=== PATIENT | male | born 1960 | race Caucasian/White ===

== ENCOUNTER 2022-03-23 14:44 | Outpatient (CLI) | payer OTHER, SELFPAY ==
--- NOTE | 2022-03-23 16:00 | CRLHL7_ITS ---
For Patients: As a result of the Century Cures Act, medical imaging exams and procedure reports are released immediately into your electronic medical record. You may view this report before your referring provider. If you have questions, please contact your health care provider. INDICATION: 2 MONTHS NONIMPROVEMENT FROM BASELINE Respiratory DISTRESS COMPARISON: Chest x-ray 03/15/2022 TECHNIQUE: CT volumetric acquisition was performed of the thorax during intravenous infusion of 95 cc Isovue 370 nonionic intravenous contrast. Please note that all CT scans at this facility use dose modulation, iterative reconstruction, and/or weight-based dosing when appropriate to reduce radiation dose to as low as reasonably achievable. FINDINGS: There is no pulmonary embolism in the main, lobar or segmental pulmonary arteries. Calcified subcarinal lymph node noted along with a calcified right hilar lymph node. Mildly enlarged precarinal lymph node present, likely also related to old granulomatous exposure. No pleural effusion. The upper abdomen is unremarkable. No aortic dissection. Partially calcified nodule in the right upper lobe measuring 7 millimeters. Noncalcified nodule in the right middle lobe measuring 4 millimeters. Calcified nodule right lower lobe measuring 1.5 cm. Dependent atelectasis in the left lower lobe. IMPRESSION: No evidence of pulmonary thromboembolism. Sequela of granulomatous disease with calcified lymph nodes and calcified right-sided pulmonary granulomas. Other noncalcified mediastinal lymph nodes and right-sided nodules are present which are also likely related to the granulomatous disease. Follow-up CT chest in 1 year suggested. Please note that all CT scans at this facility use dose modulation, iterative reconstruction, and/or weight-based dosing when appropriate to reduce radiation dose to as low as reasonably achievable. Dictated by Tom Lewis MD @ 03/24/2022 8:23:56 AM (Electronically Signed)
[2022-03-23] MEDS: PERFLUTREN LIPID MICROSPHERES 2 ML VIAL IV (16:46)
== END 2022-03-23 14:45 | disposition home or self-care (01) ==
PROVIDERS: PCP Family Medicine; Visit Provider Family Medicine
DX: R01.1 Cardiac murmur, unspecified (principal); J45.901 Unspecified asthma with (acute) exacerbation
CPT/HCPCS: 71260; 93306; Q9957; Q9967

== ENCOUNTER 2022-05-29 10:48 | Outpatient (CLI) | payer OTHER, SELFPAY | END 2022-05-29 10:49 | disposition home or self-care (01) | PROVIDERS: PCP Family Medicine; Visit Provider Family Medicine | DX: Z00.00 Encounter for general adult medical examination without abnormal findings (principal); R73.9 Hyperglycemia, unspecified; E66.01 Morbid (severe) obesity due to excess calories; Z13.6 Encounter for screening for cardiovascular disorders; Z11.59 Encounter for screening for other viral diseases | CPT/HCPCS: 80053; 80061; 86803 ==

== ENCOUNTER 2022-08-29 06:07 | Day surgery (SDC) | payer OTHER, SELFPAY ==
[2022-08-29] VITALS (14 sets, daily range): BP systolic 113–143; BP diastolic 57–86; PULSE 58–76; RESP 16–20; TEMP 36.2–36.7; O2SAT 93–97; BMI 48.8
[2022-08-29] MEDS: LACTATED RINGERS 1000 ML 1,000 ML 100 ML IV (06:15)
[2022-08-29] MEDS: SODIUM CHLORIDE 0.9 % (FLUSH) 10 ML SYRINGE IVF (07:33)
[2022-08-29] MEDS: MIDAZOLAM HCL 1 MG/ML inj IVP (07:39)
[2022-08-29] MEDS: fentaNYL 100 MCG/2 ML inj IVP (07:39)
--- NOTE | 2022-08-29 07:51 | P.NB_ITS ---
Nerve Block Nerve Block Time Seen by Provider: 07:42 Date Seen: 08/29/22 Type of block requested by surgeon for post-operative analgesia: supraclavicular Side: left Time out performed: Yes Verification of patient name: Yes Verification of date of : Yes Site marking: site marked Name of person performing procedure: Joni Continuous monitoring Was continuous monitoring of O2 sat, B/P, monitor and storage bin tender, recorded every 15 minutes?: Yes Procedure Checklist: sterile prep, needles and gloves Ultrasound guided. Images saved: Yes Medications given in 5ml increments after negative aspiration: Ropivicaine %: 0.5 mL: 20 Needle gauge: 22 Decadron (mg): 10 Precedex (mcg): 25 Patient tolerated procedure well: Yes Block Charges Block Charge (with Pro Fee): Brachial Plexus Use of Ultrasound Machine for Block: Yes- US Guidance/pain block
--- NOTE | 2022-08-29 07:51 | W.ANESCHARGE ---
Anesthesia Charges Start Date/Time Anesthesia Start Date: 08/29/22 Anesthesia Start Time: 07:49 Stop Date/Time Anesthesia Stop Date: 08/29/22 Anesthesia Stop Time: 10:06
--- NOTE | 2022-08-29 08:05 | SUR.PREOP ---
TIME?OUT:?0739 PT/RN/MDA?VERIFICATION?OF?SURGICAL?SITE,?PROCEDURE,?AND?CONSENT OBTAINED?PRIOR?TO?INVASIVE?PROCEDURE.
[2022-08-29] MEDS: CEFAZOLIN 2 GM in 0.9 % SODIUM CHLORIDE Mini-bag 100 ML IVPB (08:25)
[2022-08-29] MEDS: EPINEPHrine 1 MG in SODIUM CHLORIDE IRRIG SOLUTION 3,000 ML 3001 MG IRRIGATION ×3 (08:29→09:05)
--- NOTE | 2022-08-29 08:41 | SUR.OPER ---
PATIENT QUESTIONS ANSWERED SATISFACTORILY PREOPERATIVELY. PATIENT BROUGHT TO OR #3 PER CART FOLLOWING THE BLOCK. Patient positioned supine on OR #3 bed for the intubation.? Perioperative team wrapped the right arm in a neutral position on the pt. abdomen with the drawsheet. Left arm elevated on an IV pole in a padded strap. Final approval of positioning by surgeon. CONTINUOUS IRRIGATION OF THE LEFT SHOULDER WITH MIXTURE OF 3000 NACL AND 1mg OF EPINEPHRINE DURING PROCEDURE.
[2022-08-29] MEDS: EPINEPHrine 1 MG in SODIUM CHLORIDE IRRIG SOLUTION 3,000 ML 1501 MG IRRIGATION (09:13)
--- NOTE | 2022-08-29 10:08 | W.ANESCHARGE ---
Anesthesia Charges Start Date/Time Anesthesia Start Date: 08/29/22 Anesthesia Start Time: 07:49 Stop Date/Time Anesthesia Stop Date: 08/29/22 Anesthesia Stop Time: 10:06
--- NOTE | 2022-08-29 11:26 | P.ORPRC_ITS ---
Procedure Note Date of procedure: 08/29/22 Procedure: PREOPERATIVE DIAGNOSES: 1. Left shoulder rotator cuff tear. 2. Left shoulder AC degenerative joint disease, primary, moderate-severe 3. Left shoulder labral tearing 4. Left shoulder low-grade partial-thickness long of the biceps tendon tearing. 5. 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 Left shoulder subacromial impingement syndrome. 7. Morbid obesity-BMI 48.9 POSTOPERATIVE DIAGNOSES: 1. Left shoulder rotator cuff tear - supraspinatus small full-thickness tear; upper border subscapularis tear with retraction 2. Left shoulder AC degenerative joint disease, primary, moderate-severe 3. Left shoulder labral tearing 4. Left shoulder low-grade partial-thickness long of the biceps tendon tearing. 5. 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 Left shoulder subacromial impingement syndrome. 7. Morbid obesity-BMI 48.9 NAME OF OPERATION: 1. Left shoulder arthroscopic rotator cuff repair (supraspinatus; subscapularis)-15% added difficulty due to patient's body habitus. While arthroscopic the way able to complete all things, this did require deeper portals and caution with positioning for patient's safety as well as 15% increased operative time relative to expected for this size of rotator cuff te ar. 2. Left shoulder arthroscopic distal clavicle excision 3. Left shoulder arthroscopic extensive glenohumeral debridement 4. Left shoulder arthroscopic bursectomy, subacromial decompression/partial acromioplasty. SURGEON: Spencer Cullen MD ENROLLMENT MANAGER: [Ari CASTRO]. Of note, a skilled family readiness support assistant was critical for this case to aide in patient positioning, suture manipulation, arm positioning, instrument positioning, and closure. ANESTHESIA: General plus preoperative supraclavicular block. EBL: 25 mL IMPLANTS: Arthrex 4.75 mm BioComposite SwiveLock suture anchor (x2); 5.5 mm BioComposite SwiveLock suture anchor (x1) COMPLICATIONS: [None evident] INDICATIONS: The patient is a pleasant, 62-year-old male who has experienced left shoulder pain that has been increasing in recent time. Physical exam and imaging were consistent with a rotator cuff tear. Given their findings, as well as the weakness and pain, and inadequate response to nonoperative management, recommendation was made for surgery. FINDINGS: Exam under anesthesia revealed stable shoulder with excellent range of motion. The diagnostic arthroscopy revealed grade 2-3 chondromalacia humeral head. The Subscapularis tendon was torn with mild-moderate retraction from upper border. The long head of the biceps tendon was torn low-grade partial- thickness manner on the deep surface at the bicipital groove region. The superior rotator cuff tendon was found to be [torn full thickness at the anterior margin measuring approximately 12 mm in greatest dimension with minimal retraction]. The labrum was [degeneratively frayed in the anterior and superior aspects]. No loose bodies were identified within the pouch or subscapularis recess. PROCEDURE: Following a thorough discussion of risks, benefits, and alternatives, consent was obtained and the left shoulder was marked. The patient was brought to the operating room and placed supine on the operating t able. Induction of anesthesia was completed after preoperative supraclavicular block was administered in preop holding. Appropriate time out was performed identifying proper patient, site, and procedure. 2 g IV Ancef was administered within 1 hour of incision preoperatively. The left upper extremity was prepped and draped in the appropriate sterile fashion using ChloraPrep prep. This was after the patient was positioned in the beach chair with their head in neutral alignment and all bony prominences well padded. The shoulder was insufflated with 20mL of normal saline via an 18g spinal needle from a posterior approach. An 11 blade skin incision allowed a blunt trochar to be inserted and diagnostic arthroscopy to be performed with the findings as noted above. An anterior portal was established with an outside in technique. This allowed the probe to be inserted and confirm the diagnostic arthroscopic findings. The shaver was then inserted and allowed debridement of [the anterior and superior labrum as well as the humeral head and the long head of the biceps partial- thickness tearing.] Following this, the upper border subscapularis was [repaired after debriding the lesser tuberosity with the shaver and [place] cautery. Subscapularis was captured in horizontal mattress fashion with a fiber tape suture. The tails were brought to a single anchor in the lesser tuberosity with excellent reapproximation of the subscap tendon and good excursion/tension.] Thereafter, the subacromial space was entered. Here, [a complete bursectomy and partial acromioplasty/subacromial decompression was performed with a combination of radiofrequency ablator, the shaver, and a 5.5 mm bur.] [Additionally, distal clavicle excision was performed with the bur. 8 mm of distal clavicle was resected based on the width of our bur.] Further inspection of the supraspinatus and infraspinatus rotator cuff was performed. [This identified the tear as noted above. The margins of the tear were debrided, and the greater tuberosity was debrided with a combination of the [place] cautery, shaver, and bur on reverse setting.] [After gentle decortication, single FiberTape suture was passed in a horizontal mattress fashion with the scorpion needle. It was brought to a single anchor further laterally with excellent reapproximation and securing of the rotator cuff.] Prior to anchor driver education road instructor removal, the eyelet sutures were tugged on for each anchor and found that the anchor had excellent stability within the bone. The shoulder was placed through range of motion and found to be stable. The rotator cuff was re-probed and found to be stable. Instruments were removed. Excess fluid was drained, closure performed with 4-0 Monocryl and Steri-Strips. Dressings were applied. Sling was applied. The patient was awoken from anesthesia and transferred to the PACU in stable condition. A skilled family readiness support assistant was critical for this case to aid in patient positioning, limb positioning, skill to manipulate arthroscopic instruments and camera, suture management, patient safety, and closure. As reminder, 15% added difficulty due to patient's body habitus. This required deeper portals and increased caution with patient positioning increased time both for positioning as well as operative time due to mass of the patient. PLAN: 1. Elbow, forearm, wrist and digit range of motion of operative extremity as tolerated. 2. Encouraged ice. 3. [Percocet] for pain as needed. 4. Sling at all times except for ROM and showering. 5. Follow up with PA visit in 1-2 weeks for wound check. Initiate physical therapy following that visit for passive range of motion. Initiate active assisted range of motion at 5-6 weeks depending on tear size. May do pendulums now.
== END 2022-08-29 11:40 | disposition home or self-care (01) ==
PROVIDERS: PCP Family Medicine; Visit Provider Orthopaedic Surgery Sports Medicine
PROC: (CPT 29805; principal; 2022-08-29 07:45)
DX: M75.102 Unspecified rotator cuff tear or rupture of left shoulder, not specified as traumatic (principal); S46.112A Strain of muscle, fascia and tendon of long head of biceps, left arm, initial encounter; S43.432A Superior glenoid labrum lesion of left shoulder, initial encounter; M94.212 Chondromalacia, left shoulder; M75.42 Impingement syndrome of left shoulder; G89.18 Other acute postprocedural pain; E66.01 Morbid (severe) obesity due to excess calories; Z68.42 Body mass index [BMI] 45.0-49.9, adult
CPT/HCPCS: 29827; 29826; 29823; 29824; 01630; 64415; 76942; C1713; J0171; J0330; J0690; J1100; J1720; J2250; J2405; J2704; J2795; J3010; J7120; L3670

== ENCOUNTER 2022-09-14 12:24 | Outpatient (CLI) | payer OTHER, SELFPAY ==
--- NOTE | 2022-09-14 06:41 | W.ANESCHARGE ---
Anesthesia Charges Start Date/Time Anesthesia Start Date: 09/14/22 Anesthesia Start Time: 13:31 Stop Date/Time Anesthesia Stop Date: 09/14/22 Anesthesia Stop Time: 14:00
--- NOTE | 2022-09-14 14:02 | W.ANESCHARGE ---
Anesthesia Charges Start Date/Time Anesthesia Start Date: 09/14/22 Anesthesia Start Time: 13:31 Stop Date/Time Anesthesia Stop Date: 09/14/22 Anesthesia Stop Time: 14:00
== END 2022-09-14 12:25 | disposition home or self-care (01) ==
PROVIDERS: PCP Family Medicine; Visit Provider Internal Medicine
DX: Z12.11 Encounter for screening for malignant neoplasm of colon (principal); K63.5 Polyp of colon; K57.30 Diverticulosis of large intestine without perforation or abscess without bleeding
CPT/HCPCS: 45385; 811; 88305; J2704

== ENCOUNTER 2022-12-07 16:00 | Outpatient (RCR) | payer OTHER, SELFPAY | END 2023-01-29 11:22 | disposition home or self-care (01) | PROVIDERS: PCP Family Medicine; Visit Provider Orthopaedic Surgery Sports Medicine | DX: M75.42 Impingement syndrome of left shoulder (principal); M19.012 Primary osteoarthritis, left shoulder; M67.922 Unspecified disorder of synovium and tendon, left upper arm; S46.012A Strain of muscle(s) and tendon(s) of the rotator cuff of left shoulder, initial encounter; Z98.890 Other specified postprocedural states; M25.512 Pain in left shoulder; R53.1 Weakness; Z74.09 Other reduced mobility; Z51.89 Encounter for other specified aftercare | CPT/HCPCS: 97110; 97140; 97161; J2704 ==

== ENCOUNTER 2023-01-20 19:14 | Outpatient (CLI) | payer OTHER, SELFPAY ==
--- NOTE | 2023-01-29 12:36 | W.PM.SLEEP ---
Sleep Study Details Details Interpreting Provider: Trisha Date of Sleep Study: 01/20/23 Sleep Study Details: STUDY TYPE:? Home unattended ? BMI:? 49.2 ORDERING PROVIDER:? Trisha INDICATION:? Daytime hypersomnolence, [place] score 10, concerns about sleep apnea ? SLEEP SUMMARY:? Monitor time 483 minutes RESPIRATORY SUMMARY:? AHI 3, low oxygen 87, 0.5% of study oxygen below 90%, snoring 0.3% PERIODIC LIMB MOVEMENTS OF SLEEP:? Not recorded during home study CARDIAC:? Range 44-83, mean 56 IMPRESSION:? This study is not demonstrate clinically significant obstructive sleep apnea. Is possible he did not sleep well during the study and that will have to be checked in the clinic. Based on his [place] score in BMI am surprised that he did not have a positive study. RECOMMENDATION: See above will check and see if he slept well. If he did not would recommend an in-lab study.
== END 2023-01-20 19:15 | disposition home or self-care (01) ==
LOC: SLEEP 19:15
PROVIDERS: PCP Family Medicine; Visit Provider Otolaryngology
DX: G47.30 Sleep apnea, unspecified (principal); G47.10 Hypersomnia, unspecified; R06.83 Snoring
CPT/HCPCS: 95806

== ENCOUNTER 2023-07-31 04:33 | Emergency (ER) | payer OTHER, SELFPAY ==
[2023-07-31 04:42] VITALS: BP 156/75; PULSE 63; RESP 16; TEMP 36.4; O2SAT 94; BMI 43.6
[2023-07-31 05:10] LABS: Appearance Urine Clear (Clear); Bilirubin Urine Negative (Negative); Blood Urine Negative (Negative); Color Urine Yellow (Yellow); Glucose Urine Negative (Negative); Ketones Urine Negative (Negative); Leukocyte Esterase Urine Negative (Negative); Nitrite Urine Negative (Negative); Protein Urine Negative (Negative); Specific Gravity Urine 1.025 (1.000-1.030); Urobilinogen Urine 0.2 (0.2-1.0); pH Urine 6.5 (5.0-8.5)
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
[2023-07-31] MEDS: ONDANSETRON 2 MG/ML inj 4 MG IVP (05:20)
[2023-07-31 05:22] LABS: RBC Urine 0-2 (0-2); Squamous Epithelial Cell Urine Few (None-Few); WBC Urine 0-2 (0-5)
--- NOTE | 2023-07-31 05:24 | CT_ITS ---
Patient: MORENA HALL Facility:?[facility] Patient ID:?[id number] Site Patient ID:?[id number]. Site :?[id number] Study:?CT-Abdomen/Pelvis WITHOUT-07/31/2023 6:09:29 AM Ordering Physician:YOLIS Final Report: INDICATION: Right upper quadrant abdominal pain, history of kidney stones. COMPARISON: 05/01/2019 TECHNIQUE: CT of the abdomen and pelvis without intravenous contrast. Multiplanar axial, coronal, and sagittal reformats were reconstructed. Contrast: None. FINDINGS: Lung bases: Calcified granuloma with a few small peripheral micro nodules immediately adjacent in the right lower lobe. This is not a new finding. Mild left lower lobe atelectasis. Liver: Normal. No mass. Gallbladder and bile ducts: Normal gallbladder. No bile duct dilation. Pancreas: Normal. Spleen: Normal. Adrenal glands: Normal. Kidneys: Mild volume loss and scarring since the previous exam. No discrete mass seen. There is a 3 millimeter nonobstructing calculus in the left lower pole. No urinary tract dilation. Urinary bladder: Almost completely empty at the time of the exam. Pelvis: Few small pelvic phleboliths are unchanged since the previous exam. Vessels: Normal. Bowel: No dilated or inflamed bowel. appendix. Mild stool burden. Lymph nodes: No adenopathy. Peritoneum: No ascites. Abdominal wall: Fat containing umbilical hernia. Bones: No fractures. No focal worrisome bone lesions. Lower lumbar facet arthritis. IMPRESSION: There is a 3 millimeter nonobstructing left renal calculus. Please note that all CT scans at this facility use dose modulation, iterative reconstruction, and/or weight-based dosing when appropriate to reduce radiation dose to as low as reasonably achievable. Dictated by Judit Antonio MD @ 07/31/2023 6:47:40 AM Signed by:?Judit Antonio MD @07/31/2023 6:47:40 AM (Electronic Signature)
[2023-07-31 05:32] LABS: Basophils Absolute Auto 0.02 K/uL (0.00-0.30); Basophils Percent Auto 0.2 % (0.0-3.0); Eosinophils Absolute Auto 0.23 K/uL (0.00-0.50); Eosinophils Percent Auto 2.7 % (0.0-7.0); Hematocrit 40.5 % (37.0-53.0); Hemoglobin* 12.9 gm/dL (13.5-17.5); Immature Granulocytes Abs Auto 0.05 K/uL (0.00-0.30); Immature Granulocytes Pct Auto 0.6 %; Lymphocytes Absolute Auto 2.37 K/uL (0.90-2.90); Lymphocytes Percent Auto 27.5 % (20-44); Mean Corpuscular HGB Conc 32 gm/dL (32-36); Mean Corpuscular Hemoglobin 28 pg (26-34); Mean Corpuscular Volume 88 fL (80-100); Monocytes Percent Auto 9.3 % (0.0-11.0); Neutrophils Absolute Auto 5.15 K/uL (1.7-7.0); Neutrophils Percent Auto 59.7 % (42.0-72.0); Platelet Count* 231 K/uL (140-440); RDW Coefficient of Variation % 14.4 % (11.5-15.5); Red Blood Count 4.61 m/uL (4.30-5.90); White Blood Count* 8.62 K/uL (4.50-11.00)
[2023-07-31] MEDS: 0.9 % SODIUM CHLORIDE 1000 ml 1,000 ML IV (05:33)
[2023-07-31] MEDS: KETOROLAC 15 MG/ML inj IVP (05:34)
[2023-07-31 05:44] LABS: Slide Review Reflex No
[2023-07-31 05:45] LABS: Albumin* 4.3 g/dL (3.3-5.0); Chloride* 106 mmol/L (96-114)
[2023-07-31 05:46] LABS: Potassium* 4.2 mmol/L (3.6-5.1); Sodium* 138 mmol/L (135-149)
[2023-07-31 05:48] LABS: Alkaline Phosphatase* 74 U/L (40-150); Anion Gap 7 mEq/L (7-15); Aspartate Amino Transferase* 23 U/L (12-35); Bilirubin Direct* 0.3 mg/dL (0.0-0.5); Bilirubin Total* 0.6 mg/dL (0.1-1.5); Blood Urea Nitrogen* 19 mg/dL (7-30); Carbon Dioxide* 25 mmol/L (20-32); Creatinine* 0.6 mg/dL (0.5-1.5); Estimated Glomerular Filt Rate 110 ml/min; Total Protein* 7.1 g/dL (6.0-8.3)
[2023-07-31 05:49] LABS: Alanine Aminotransferase* 30 U/L (4-50); Calcium* 9.2 mg/dL (8.4-10.6); Glucose* 119 mg/dL (60-115); Lipase* 59 U/L (23-300)
[2023-07-31 05:51] LABS: C Reactive Protein* 0.7 mg/dL (0.5-1.0)
[2023-07-31 05:52] VITALS: BP 149/69; PULSE 58; RESP 16; O2SAT 98
--- OUTSIDE RECORDS SUMMARY | 2023-07-31 07:10 | XMS_ITS | Clinical Summary ---
Author Organization [employer] [facility] Address [place], [place] [address] Care Team Providers Care Stripe Matcher Name Role Phone Pcp, No Primary Care Provider Unavailabl e Social History Tobacco Use Types Packs/Day Years Used Date Smoking Tobacco: Never Assessed Sex and Gender Information Value Date Recorded Sex Assigned at Not on file Gender Identity Not on file Sexual Orientation Not on file Plan of Treatment Health Maintenance Due Date Last Done Comments Tdap 1973 Depression screening for age 12+ 1974 HIV for age 15-65 1977 BMI (ht and wt on same day) for age 18+ 1980 Hepatitis C screening for ag e 18-79 1980 Tetanus booster 1982 Colonoscopy through age 75 2007 Lipids for age 45-75 02/23/2009 02/24/2004, 04/13/2002, 04/13/2002 Zoster (shingles) series for age 50+ (1 of 2) 2012 COVID-19 vaccine series (2022- season) 2022 Influenza for age 50-64 10/20/2023 Pneumococcal series for age 6-64 Aged Out No longer eligible b ased on patient's age to complete this topic Procedures Procedure Name Priority Date/Time Associated Diagnosis Comments LIPID PANEL Timed 02/24/2004 7:51 AM DOCK MANAGER from Last 3 Months or Most Recently Relevant to Health Maintenance Results * (ABNORMAL) LIPID PANEL (02/24/2004 7:51 AM DOCK MANAGER) CHOLESTEROL,TOTAL 330(H) 110 - 199 mg/dL [facility] TRIGLYCERIDES 170(H) 40 - 149 mg/dL [facility] HDL CHOLESTEROL 52 41 - 75 mg/dL [facility] CHOL/HDL RATIO 6.35(H) <4.51 [facility] LDL CHOLESTEROL 244(H) 60 - 130 mg/dL [facility] PATIENT STATUS Fasting [facility] 02/24/2004 7:51 AM DOCK MANAGER 02/24/2004 1:24 PM DOCK MANAGER Castillo He MD CHEMISTRY [facility] INTERNAL ZIP [phone] [address] from Last 3 Months or Most Recently Relevant to Health Maintenance Care Teams Stripe Matcher Relationship Specialty Start Date End Date Pcp, No . PCP - General 05/29/17
== END 2023-07-31 07:30 | disposition home or self-care (01) ==
LOC: ED 07:09
PROVIDERS: Emergency Provider Family Medicine; PCP Family Medicine
DX: S39.012A Strain of muscle, fascia and tendon of lower back, initial encounter (principal)
CPT/HCPCS: 36415; 74176; 80048; 80076; 81001; 83690; 85025; 86140; 96361; 96374; 96375; 99284; J1885; J2405; J7030

== ENCOUNTER 2024-07-10 11:21 | Outpatient (CLI) | payer BC, SELFPAY | END 2024-07-10 11:22 | disposition home or self-care (01) | LOC: NFLDREF 07-16 12:25 | PROVIDERS: Visit Provider Family Medicine | DX: Z00.01 Encounter for general adult medical examination with abnormal findings (principal); D64.9 Anemia, unspecified; R73.9 Hyperglycemia, unspecified; Z12.5 Encounter for screening for malignant neoplasm of prostate; Z13.6 Encounter for screening for cardiovascular disorders | CPT/HCPCS: 80053; 80061; G0103 ==

== ENCOUNTER 2025-01-20 10:23 | Outpatient (CLI) | payer BC, SELFPAY | END 2025-01-20 10:24 | disposition home or self-care (01) | PROVIDERS: PCP Family Medicine; Visit Provider Family Medicine | DX: R19.5 Other fecal abnormalities (principal); R25.1 Tremor, unspecified; R63.4 Abnormal weight loss | CPT/HCPCS: 80076; 86301; 87086 ==

== ENCOUNTER 2025-01-21 10:31 | Outpatient (CLI) | payer BC, SELFPAY | END 2025-01-21 10:32 | disposition home or self-care (01) | LOC: NFLDREF 01-26 09:54 | PROVIDERS: PCP Family Medicine; Referring Provider Family Medicine; Visit Provider Family Medicine | DX: R53.1 Weakness (principal); R63.4 Abnormal weight loss; R25.1 Tremor, unspecified; R19.5 Other fecal abnormalities | CPT/HCPCS: 87177; 87209; 87493 ==

== ENCOUNTER 2025-02-12 10:52 | Emergency (ER) | payer BC, SELFPAY ==
[2025-02-12] VITALS (7 sets, daily range): BP systolic 133–155; BP diastolic 64–79; PULSE 70–96; RESP 16–18; TEMP 37.4; O2SAT 94–97; BMI 49.5
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
--- NOTE | 2025-02-12 12:12 | CRLHL7_ITS ---
For Patients: As a result of the Century Cures Act, medical imaging exams and procedure reports are released immediately into your electronic medical record. You may view this report before your referring provider. If you have questions, please contact your health care provider. INDICATION: Painful umbilical hernia TECHNIQUE: CT abdomen and pelvis acquired with 100 cc Omnipaque 350 IV contrast. COMPARISON: Abdomen x-ray 01/20/2025 FINDINGS: Lower chest: There is a 1.1 x 1.0 centimeter partially calcified nodule in the right lower lobe on series 2, image 17, likely reflecting a granuloma. There is subsegmental left basilar atelectasis. The heart size is normal. Liver: Unremarkable. Normal in size and attenuation. No suspicious masses. Gallbladder and bile ducts: The gallbladder is minimally distended, limiting evaluation. No stones or inflammation. No biliary dilatation. Pancreas: Unremarkable. No mass or inflammation. Spleen: Unremarkable. Normal in size. No masses. Adrenal glands: Unremarkable. No nodules. Kidneys: The kidneys are symmetric in size. There is no hydronephrosis. There are punctate nonobstructing calculi in the lower pole the left kidney, for example on series 2, image 65. There is an intermediate density 1.0 centimeter nodule within the lower pole of the left kidney on series 2, image 63. Evaluation is otherwise limited secondary to contrast bolus timing. GI tract: No evidence of bowel obstruction. No evidence of inflammation. Vasculature: Abdominal aorta is normal in caliber. Mesenteric arteries are patent. Lymph nodes: No lymphadenopathy. Peritoneum/Abdominal Wall: There is a fat containing umbilical hernia, with the opening of the hernia measuring 1.5 centimeters on series 2, image 85. No free air or significant free fluid. Pelvis: Urinary bladder and prostate are unremarkable. Bones: There are degenerative changes within the spine. There may be congenital nonfusion of the right transverse processes of L2, L3 and L4, for example on series 2, image 52. Alternatively, this may reflect sequela of prior trauma. No acute osseous abnormality. IMPRESSION: 1. Fat containing umbilical hernia. The opening of the hernia measures 1.5 centimeters. No evidence of bowel obstruction or bowel strangulation. 2. Partially calcified 1.1 x 1.0 centimeter nodule in the right lower lobe posteriorly. This most likely reflects a partially calcified granuloma. Correlation with any prior outside imaging is recommended to document the stability of this finding. 3. Nonobstructing calculi in the lower pole the left kidney. Please note that all CT scans at this facility use dose modulation, iterative reconstruction, and/or weight-based dosing when appropriate to reduce radiation dose to as low as reasonably achievable. Dictated by Luiz Franco MD @ 02/12/2025 1:48:53 PM (Electronically Signed)
[2025-02-12 12:29] LABS: Lactate* 1.5 mmol/L (0.5-1.9)
[2025-02-12 12:30] LABS: Hematocrit* 39.5 % (37.0-53.0); Hemoglobin* 12.1 gm/dL (13.5-17.5); Immature Granulocytes Abs Auto 0.02 K/uL (0.00-0.30); Immature Granulocytes Pct Auto 0.3 %; Lymphocytes Absolute Auto 2.12 K/uL (0.90-2.90); Mean Corpuscular HGB Conc 31 gm/dL (32-36); Mean Corpuscular Hemoglobin 28 pg (26-34); Mean Corpuscular Volume 90 fL (80-100); RDW Coefficient of Variation % 14.4 % (11.5-15.5); Red Blood Count* 4.37 m/uL (4.30-5.90); White Blood Count* 7.49 K/uL (4.50-11.00)
[2025-02-12 12:31] LABS: Slide Review Reflex No
[2025-02-12 12:46] LABS: Albumin* 3.6 g/dL (3.3-5.0); Chloride* 107 mmol/L (96-114); Sodium* 137 mmol/L (135-149)
[2025-02-12 12:47] LABS: Potassium* 3.7 mmol/L (3.6-5.1)
[2025-02-12 12:49] LABS: Alanine Aminotransferase* 40 U/L (4-50); Alkaline Phosphatase* 69 U/L (40-150); Anion Gap 5 mEq/L (7-15); Aspartate Amino Transferase* 28 U/L (12-35); Bilirubin Total* 0.4 mg/dL (0.1-1.5); Blood Urea Nitrogen* 13 mg/dL (7-30); Carbon Dioxide* 25 mmol/L (20-32); Creatinine* 0.6 mg/dL (0.5-1.5); Est. Creatinine Clearance* 76.59; Estimated Glomerular Filt Rate 109 ml/min; Total Protein* 6.5 g/dL (6.0-8.3)
[2025-02-12 12:50] LABS: Calcium* 9.4 mg/dL (8.4-10.6); Glucose* 105 mg/dL (60-115)
== END 2025-02-12 14:23 | disposition home or self-care (01) ==
PROVIDERS: Emergency Provider Family Medicine; PCP Family Medicine
DX: K42.9 Umbilical hernia without obstruction or gangrene (principal)
CPT/HCPCS: 36415; 74177; 80053; 83605; 85025; 86140; 99284; 99285; Q9967